=== PATIENT | male | born 1995 | race Caucasian/White ===

== ENCOUNTER 2023-11-01 06:59 | Emergency (ER) | payer SELFPAY ==
[2023-11-01] VITALS (9 sets, daily range): BP systolic 119–134; BP diastolic 64–86
[~2023-11-01] VITALS: Ht 180.3 cm; Wt 99.7 kg
[~2023-11-01 06:59] MED LIST: BACTRIM DS1 TAB PO
[2023-11-01] MEDS ORDERED: ALUM & MAG HYDROX-SIMETHICONE 30 ML PO ONE (07:20)
[2023-11-01] MEDS ORDERED: LIDOCAINE VISCOUS 2% 15 ML UDC PO ONE (07:20)
[2023-11-01 07:34] LABS: BASO% 0.5 % (0-3); EOS% 3.8 % (0-8); HEMATOCRIT 45.4 % (39.0-50.0); HEMOGLOBIN 15.3 g/dl (14.0-18.0); IMMATURE GRANULOCYTES 1.4 % (0.0-5.0); LYMPH% 36.4 % (15-41); MEAN CORPUSCULAR HGB 28.7 pG CALC (26.0-32.0); MEAN CORPUSCULAR HGB CONC 33.7 g/dL CAL (32.0-36.0); MONO% 8.8 % (2-13); NEUT# 4.16 thou/uL (1.82-7.42); NEUT% 49.1 % (42-76); RED BLOOD COUNT 5.34 mill/uL (4.70-6.10); RED CELL DISTRI WIDTH 12.7 % (11.5-15.5)
[2023-11-01 07:43] LABS: ALBUMIN 4.7 g/dL (3.2-5.0); BILIRUBIN, TOTAL 0.5 mg/dL (0.2-1.3); CREATININE 0.8 mg/dL (0.7-1.3); POTASSIUM 4.4 mmol/l (3.5-5.1); TOTAL PROTEIN 7.8 g/dL (6.3-8.2)
[2023-11-01 08:59] LABS: URINE BILIRUBIN - DIPSTICK Negative (NEGATIVE); URINE BLOOD DIPSTICK Negative (NEGATIVE); URINE GLUCOSE - DIPSTICK Negative (NEGATIVE); URINE KETONE Trace mg/dL (NEGATIVE); URINE LEUK ESTERASE Negative (NEGATIVE); URINE NITRITE - DIPSTICK Negative (Negative); URINE PROTEIN - DIPSTICK Negative (NEG-TRACE); URINE SPECIFIC GRAVITY >=1.030; URINE UROBILINOGEN - DIPSTICK 0.2 E.U./dL (0.2)
[2023-11-01 09:00] LABS: URINE COLOR Yellow
[2023-11-01] MEDS ORDERED: OMEPRAZOLE DR40 MG PO (09:07)
== END 2023-11-01 09:34 | disposition home or self-care (01) | DRG 392 ==
LOC: ED 06:59
PROVIDERS: Family Medicine
DX: R10.13 Epigastric pain (principal); R11.2 Nausea with vomiting, unspecified; F17.210 Nicotine dependence, cigarettes, uncomplicated; Z20.822 Contact with and (suspected) exposure to COVID-19
CPT/HCPCS: Q9967